=== PATIENT | female | born 1990 | race Hispanic/Latino ===

== ENCOUNTER 2019-09-12 06:57 | Inpatient (IN) | payer MEDICAID, SELFPAY ==
[2019-09-12] MEDS ORDERED: hydrALAZINE 20 MG/ML VIAL SLOW IVP PRN (07:51)
[2019-09-12] MEDS ORDERED: Ibuprofen 800 MG TAB PO PRN (07:51)
[2019-09-12] MEDS ORDERED: Ondansetron PF 4 MG/2 ML Vial IVP PRN (07:51)
[2019-09-12] MEDS ORDERED: HYDROcodone/Acetaminophen 5/325 mg Tablet PO PRN ×2 (07:51)
[2019-09-12] MEDS ORDERED: Promethazine HCl 25 MG/ML VIAL IM PRN (07:51)
[2019-09-12] MEDS ORDERED: Butorphanol Tartrate 1 MG/ML VIAL SLOW IVP PRN (07:51)
[2019-09-12] MEDS ORDERED: Lidocaine 1% (PF) 30 ML VIAL SC PRN (07:51)
[2019-09-12] MEDS ORDERED: Lidocaine 1% (PF) 30 ML VIAL ONE (08:00)
[2019-09-12] MEDS ORDERED: NS / Oxytocin 40 units/1000ml 1,000 ML ONE (08:00)
[2019-09-12] MEDS ORDERED: Lactated Ringer's 1,000 ML IV SCH (08:00)
[2019-09-12 08:02] LABS: #Monocytes 0.4 thou/uL (0.11-0.59); #Neutrophils 7.9 thou/uL (1.40-6.50); %Basophils 0.3 % (0.0-1.0); %Eosinophils 0.1 % (0.0-10.0); %Lymphocytes 19.5 % (21.0-51.0); %Monocytes 3.9 % (0.0-10.0); %Neutrophils 76.1 % (42.0-75.0); Hemoglobin 11.5 g/dL (12.0-16.0); Mean Corpuscular HGB CONC 33.9 g/dL (32.0-36.0); Mean Corpuscular Hemoglobin 29.3 pg (27.0-31.0); Mean Corpuscular Volume 86.4 fL (78.0-98.0); Mean Platelet Volume 8.9 fL (7.4-10.4); Platelet Count 170 thou/uL (130-400); RBC Distribution Width 12.5 % (11.5-14.5); Red Blood Cell (RBC) Count 3.91 mill/uL (4.20-5.40); White Blood Cell (WBC) Count 10.4 thou/uL (4.8-10.8)
--- NOTE | 2019-09-12 08:17 | HP ---
TIME: 7:45. LOCATION: Labor and Delivery Triage A. This is a patient, who is a patient of the Clinic. HISTORY OF PRESENT ILLNESS: I was called about 5 minutes ago to evaluate the patient in Triage A for contractions and vaginal bleeding. When I arrived (about 5 minutes after my call), I found the patient to be actively laboring. In brief, this patient is a Clinic patient, who is 29 years old, G3, P2, with her last delivery being by in [facility]. She states that she was told that her due date was 09/20 at the Clinic, and she desires a vaginal after . She was found to be 8 cm in Triage. PAST MEDICAL HISTORY: Unremarkable. ALLERGIES: NONE. SURGERIES: Includes a history. PHYSICAL EXAMINATION: The patient is having contraction discomfort, but is in no acute distress. Vitals are pending as she just arrived to Labor and Delivery, and was checked with priority due to the concern that she might be delivering. heart tones are in the 130s to 140s. Contractions are about every 2 to 3 minutes. ASSESSMENT: This is a 29-year-old G3, P2, with a prior history, who desires a vaginal after . She states that she was informed about a vaginal after /TOLAC at the Clinic. This is a STAT admission as she is now 8 to 9 cm. PLAN: 1. Notify the residents of Clinic of the patient status. 2. Admit to Labor and Delivery. 3. Prepare for delivery. 4. addressed with her by me and risks and benefits reviewed. I also discussed another , but she desires a trial of labor after . 5. I have not yet reviewed the record as she has just arrived and within 5 minutes, we are in the process of admitting her. 6. Await delivery. Job ID: [id number]
[2019-09-12] MEDS: NS / Oxytocin 40 units/1000ml 1,000 ML IV PRN ×2 (08:30→09:54)
[2019-09-12 08:41] LABS: HBSAg Index 0.28 S/CO (0-0.99); HIV (1/2) Antibody/Antigen Non-Reactive (NonReactive); HIV 1/2 INDEX 0.12 S/CO (<1.00); Hep B Surf Ag Non-Reactive S/CO (NonReactive); Syphilis Antibody Nonreactive (Nonreactive); Syphilis Antibody Index 0.04 S/CO (<1.00 Non-Reactive)
[2019-09-12] MEDS ORDERED: Prenatal Vitamin 1 TAB PO SCH (09:57)
[2019-09-12] MEDS ORDERED: Acetaminophen/Codeine 30-300mg Tablet PO PRN ×2 (09:57)
[2019-09-12] MEDS ORDERED: Bisacodyl 10 MG SUPP PR PRN (09:57)
[2019-09-12] MEDS ORDERED: Milk Of Magnesia 30 ML UDCUP PO PRN (09:57)
[2019-09-12] MEDS ORDERED: Methylergonovine 0.2 MG/ML VIAL IM PRN (09:57)
[2019-09-12] MEDS ORDERED: NS / Oxytocin 40 units/1000ml 1,000 ML IV SCH (09:57)
[2019-09-12] MEDS ORDERED: Lanolin Ointment 7 GM TUBE TOP PRN (09:57)
[2019-09-12] MEDS ORDERED: Methylergonovine 0.2 MG TAB PO PRN (09:57)
[2019-09-12] MEDS ORDERED: Misoprostol 200 MCG TAB VAG PRN (09:57)
[2019-09-12 09:59] VITALS: BMI 24.2
--- NOTE | 2019-09-12 12:12 | PDOC.OPDEL ---
OB Operative/Delivery Note Delivery Dr/Surgeon: Dr. Eula Hamm w/ Dr. Aajy Nguyen Assist: Dr. Lyle Lugo Pre-Delivery Diagnosis: active labor Procedure/Post Delivery Dx: vaginal delivery after CS Weeks gestation: 38 Anesthesia: none - Additional Findings/Plan Placenta delivered: spontaneous Repaired Obstetrical Laceration: vaginal Estimated blood loss: 75mL Compilations/Other Findings: Delivering Physician: Dr. Eula Hamm & Dr. Lyle Lugo Attending: Dr. Ajay Nguyen Procedure: Spontaneous Vaginal Delivery Anesthesia: None EBL: 75 ml Pre-op Diagnosis: 1. Term intrauterine in labor 2. Hx of C/S w/ vertical skin incision for breech presentation 3. Incomplete care 4. h/o 5. GBS unknown Post-op Diagnosis: 1. Term intrauterine , delivered 2. same as above 3. same as above 4. same as above 5. same as above 6. Successful vaginal after C/S Indications: A 29 y/o female presents in active labor. Delivery Note: This is 29yo F @ 38.6 wks who delivered a viable M infant at 0820. Following an uneventful antepartum course, a vigorous male was delivered over an intact perineum in the occipitoanterior position. Nuchal cord x1 was then easily reduced. Anterior Shoulder and then remainder of the body delivered. The head was held down and mouth and nares were bulb suctioned. Cord clamped and cut and cord blood collected. Placenta delivered intact in the [place] presentation with a 3 vessel cord noted. Fundal massage was performed and the fundus was firm. The cervix and vagina were inspected and found to have fairly superficial vaginal lacerations at ~5 & 7 o'clock that were hemostatic not requiring any repair. Infant went to nursery in good condition for routine care. Apgars were 9/9 at 1 & 5 minutes, respectively. Patient tolerated delivery well and went to after routine recovery/care. Post delivery plan: routine recovery
[2019-09-12] MEDS ORDERED: Ferrous Sulfate 325 MG TAB PO SCH (17:00)
[2019-09-12] MEDS ORDERED: Docusate Calcium (SURFAK) 240 MG CAP PO SCH (21:00)
[2019-09-13] MEDS ORDERED: FLU VACC QS2019-20(6MOS UP)/PF 60 MCG/0.5 ML SYRINGE IM ONE (09:00)
== END 2019-09-12 19:00 | disposition left against medical advice (07) | DRG 807 ==
LOC: L&D/OP 06:57 → L&D 08:27 → L&D/OP 08:30 → L&D 08:31 → EDBD 08:31 → L&D 12:47
PROVIDERS: ADMIT Obstetrics & Gynecology; ATTEND Obstetrics & Gynecology
PROC: 10E0XZZ Delivery of Products of Conception, External Approach (ICD-10-PCS; principal; 2019-09-12)
DX: O69.81X0 Labor and delivery complicated by cord around neck, without compression, not applicable or unspecified (principal); Z37.0 Single live birth; Z3A.38 38 weeks gestation of pregnancy
CPT/HCPCS: 85025; 86780; 86850; 86900; 86901; 87340; 87389; J2001